=== PATIENT | male | born 1995 | race Caucasian/White ===

== ENCOUNTER 2020-06-16 07:27 | Emergency (ER) | payer SELFPAY ==
[~2020-06-16] VITALS: Ht 182.9 cm; Wt 109.0 kg
[2020-06-16 07:35] VITALS: BP 154/98
== END 2020-06-16 08:05 | disposition home or self-care (01) ==
LOC: ER 07:27
DX: J45.901 Unspecified asthma with (acute) exacerbation (principal)
CPT/HCPCS: 99283